=== PATIENT | male | born 1990 | race Caucasian/White ===

== ENCOUNTER 2016-09-15 15:00 | Emergency (ER) | payer OTHER ==
[~2016-09-15] VITALS: Ht 175.3 cm; Wt 147.7 kg
[2016-09-15 15:12] VITALS: BP 124/74; RESP 18; O2SAT 99
--- NOTE | 2016-09-15 15:28 | ED.REPORT ---
HPI-Ear Pain/Problem/FB Date of Service Sep 15, 2016 ED Provider: History of Present Illness: left ear feels like something is in it. no ear plug use. cleans with a q-tip. primary care is crook in converse 8/10 pain. Issue has been present for 4 days. Nursing Notes Stated Complaint: EAR PAIN Chief Complaint: ENT & Mouth Nursing Notes Reviewed: Yes Allergies: Uncoded Allergies: PEACHES (Allergy, Intermediate, edema, 09/15/16) General Time Seen by MD: 15:27 Chief Complaint Ear problem left Hx Obtained From: Patient Onset Occurred: 4 days ago Symptom Duration: Since onset Past Medical History Past Medical History Denies: Asthma Past Surgical History ear tubes as a child Smoking History Current Every Day Smoker (1 pack a day for 15 years) Social History Alcohol Use: "Social" Drug Use: Denies drug use Occupation lives with sister, attends [employer] classes at [employer] [place] Ambulatory Status Independent Review of Systems Basic Review of Systems Eyes: Vision NL, No discharge Hematologic: No bleeding, No bruising Psychiatric: Normal thought content Physical Exam Initial Vital Signs Vital Signs (First) Date Time Temp Pulse Resp B/P Pulse Ox O2 Delivery O2 Flow Rate FiO2 09/15/16 15:12 36.9 72 18 124/74 99 Room Air Initial VS: Reviewed, Vital signs normal Head / Eyes: Atraumatic, Normocephalic, PERRL Neck: Supple, Non-tender, Full range of motion Respiratory: Breath sounds normal, Clear to auscultation, No respiratory distress Cardiovascular: Regular rate & rhythm, Heart sounds normal, Intact distal pulses Abdomen / GI: Soft, Non-tender, No guarding, No rebound, No distention Back: No CVA tenderness Lymphatic: No lymphadenopathy Extremities: Vascular intact, Neuro intact, No swelling, No tenderness Skin: Warm, Dry, No cyanosis Neurologic: Alert, Oriented, Nonfocal Psychiatric: Mood/affect normal, Behavior normal, Normal thought content General/Constitutional: Awake, Alert, No acute distress, Well appearing, Well developed left ear has pain with pinna movement. Exam show the canal is narrowed with discharge in canal and erthyma of the canal. Unable to visualize tympanic membrane. Head / Eyes: Atraumatic, Normocephalic, PERRL, EOMI Neck: Atraumatic, Supple, No meningismus, Full range of motion, No adenopathy Respiratory / Chest: Atraumatic, Breath sounds NL, Breath sounds = bilat, No respiratory distress Cardiovascular: Heart rate NL, Regular rhythm, Heart sounds NL, No gallop Re-Eval/Medical Decision Med Decision/Clinical Course 25 year old male presents for evualation of left ear pain. Patient admits to using q-tips for cleaning. No sign of mastoiditis. Unable to evualate for perforation of tympanic membrane. Discharge & Departure Primary Impression: Otitis externa Laterality: left Chronicity: acute Disposition: Home Patient Instructions: Otitis Externa (ED) Additional Instructions: The left ear canal is swollen with a moderate amount of discharge. I am unable to see the membrane. Use the ear drops 10 drops to the left ear daily for 7 days. Use ibuprofen 800 mg up to 3 times a day as needed for discomfort. Continue with augmentin in the am and pm for 7 days. Please keep the appointment with ENT as scheduled for October in [place]. REturn with any concerns. EDSupervising Provider for APC: Chino Tirado MD, Sue ARNP Sep 15, 2016 15:28
[2016-09-15] MEDS ORDERED: Amoxicillin-Clav 875-125 mg Tablet PO ONE (16:05)
[2016-09-15] MEDS ORDERED: Ofloxacin 0.3% 10 mL Otic Solution LEFT_EAR ONE (16:05)
== END 2016-09-15 16:19 | disposition home or self-care (01) ==
LOC: SED 15:00
DX: H60.92 Unspecified otitis externa, left ear (principal); F17.200 Nicotine dependence, unspecified, uncomplicated

== ENCOUNTER 2016-09-17 21:15 | Emergency (ER) | payer OTHER ==
[~2016-09-17] VITALS: Ht 175.3 cm; Wt 147.7 kg
[2016-09-17 21:28] VITALS: BP 128/81; PULSE 68; RESP 16; O2SAT 98
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
[2016-09-17] MEDS ORDERED: _HYDROcodone/APAP 5-325 mg Tablet PO PRN (23:40)
[2016-09-17] MEDS ORDERED: HYDROcodone-APAP 5-325 mg Tablet PO ONE (23:40)
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
== END 2016-09-18 02:18 | disposition home or self-care (01) ==
LOC: SED 21:15
DX: S16.1XXA Strain of muscle, fascia and tendon at neck level, initial encounter (principal); S39.012A Strain of muscle, fascia and tendon of lower back, initial encounter; S29.019A Strain of muscle and tendon of unspecified wall of thorax, initial encounter; V43.62XA Car passenger injured in collision with other type car in traffic accident, initial encounter; Y93.89 Activity, other specified; Y92.410 Unspecified street and highway as the place of occurrence of the external cause; Y99.8 Other external cause status; F17.200 Nicotine dependence, unspecified, uncomplicated

== ENCOUNTER 2016-09-20 22:33 | Emergency (ER) | payer OTHER ==
[2016-09-20 22:45] VITALS: BP 117/72; PULSE 78; RESP 20; O2SAT 99
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
[2016-09-21] MEDS ORDERED: METH500T PO ×2 (01:45→01:48)
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
== END 2016-09-21 02:12 | disposition home or self-care (01) ==
LOC: SED 22:33
DX: S39.012D Strain of muscle, fascia and tendon of lower back, subsequent encounter (principal); V49.59XD Passenger injured in collision with other motor vehicles in traffic accident, subsequent encounter; Y93.89 Activity, other specified; Y92.410 Unspecified street and highway as the place of occurrence of the external cause; Y99.8 Other external cause status; F17.200 Nicotine dependence, unspecified, uncomplicated